=== PATIENT | female | born 1935 | race Caucasian/White ===

== ENCOUNTER 2018-04-01 13:04 | Inpatient (IN) | END 2018-04-05 18:30 | DRG 308 ==

== ENCOUNTER 2018-04-05 18:40 | Inpatient (IN) | END 2018-04-07 19:29 | disposition short-term general hospital (02) | DRG 945 ==

== ENCOUNTER 2018-04-07 19:54 | Inpatient (IN) | END 2018-04-11 20:00 | disposition home or self-care (01) | DRG 308 ==

== ENCOUNTER 2018-05-07 19:46 | Inpatient (IN) | END 2018-06-07 18:50 | disposition EXP | DRG 291 ==